=== PATIENT | female | born 1960 | race Caucasian/White ===

== ENCOUNTER → 2016-09-21 | Outpatient (CLI) | payer OTHER ==
--- NOTE | 2016-09-21 18:38 | DX ---
DEXA Bone Mineral Densitometry Clinical Indications: Screening for osteoporosis, postmenopausal, back pain, breast cancer, estrogen berry Comparison: None Technique: Bone Mineral Densitometry (BMD) by Dual Energy X-Ray Absorptiometry (DEXA) was performed utilizing the [employer] scanner. The lumbar spine was evaluated in the AP projection. The bilat eral hips and forearm were evaluated in the AP projection. Vertebral fracture assessment was also pe rformed. AP Lumbar Spine: The L1, L2, L3 and L4 vertebral bodies were evaluated. BMD: 1.258 gm/cm2 T-score: 0.5 SD Z-score: 0.5 SD AP Left Hip: Neck BMD: 0.971 gm/cm2 T-score: -0.5 SD Z-score: 0 SD AP Right Hip: Neck BMD: 0.910 gm/cm2 T-score: -0.9 SD Z-score: -0.4 SD AP Left Forearm, 09/01: BMD: 0.970 gm/cm2 T-score: 1.1 SD Z-score: 1.6 SD Vertebral Fracture Assessment: No significant fracture deformity. No prevertebral aortic calcificati on, significant marginal bone spurring, facet arthrosis, or intrinsic vertebral body sclerosis that would effect the accuracy of the lumbar spine BMD measurement. Conclusion: Considering the lowest measured site, the patient is normal and at low risk for fracture . The ten year FRAX risk for any major osteoporotic fracture is 5.5% and for a hip fracture is 0.2%. Any bone loss in this patient is probably related to aging or estrogen blockade /deficiency. To prevent osteoporosis and to promote the patient's bone density, the following recommendations shou ld be considered: 1. Pursue a regular regimen of weightbearing and muscle strengthening exercises in order to reduce t he risk of falls and fractures (as tolerated by the patient's general medical condition). 2. Ensure that daily dietary calcium uptake is maximized. 3. Consider checking the serum vitamin D level. Ensure that intake of vitamin D is 600 IU per day (fo r all ages through 70) . 4. Consider follow-up DEXA scan in two years to assess the rate of bone loss in this patient.
== END ==
LOC: BRMIMAGING 09:26
PROVIDERS: ATTEND Physician Assistant
DX: Z13.820 Encounter for screening for osteoporosis (principal); C50.919 Malignant neoplasm of unspecified site of unspecified female breast

== ENCOUNTER 2017-10-25 07:42 | Day surgery (SDC) | payer OTHER ==
[2017-10-25] MEDS ORDERED: GLUCAGON HCL 1 MG VIAL IVP PRN (07:59)
[2017-10-25] MEDS ORDERED: MIDAZOLAM 2 MG/2 ML VIAL IVP PRN (07:59)
[2017-10-25] MEDS ORDERED: MEPERIDINE 25 MG/ML SYR IVP PRN (07:59)
[2017-10-25] MEDS ORDERED: PROTAMINE SULFATE 50 MG/5 ML VIAL IVP PRN (07:59)
[2017-10-25] MEDS ORDERED: ALTEPLASE 2 MG VIAL IVP PRN (07:59)
[2017-10-25] MEDS ORDERED: fentaNYL 100 MCG/2 ML INJ IVP PRN (07:59)
[2017-10-25] MEDS ORDERED: NALOXONE HCL 0.4 MG/ML INJ IVP PRN (07:59)
[2017-10-25] MEDS ORDERED: HEPARIN 10,000 UNIT/10 ML MDV (1,000 UNIT/ML) IVP PRN (07:59)
[2017-10-25] MEDS ORDERED: FLUMAZENIL 0.5 MG/5 ML MDV IVP PRN (07:59)
[2017-10-25] MEDS ORDERED: NS 1,000 ML IV SCH (08:00)
[2017-10-25 09:11] LABS: INR 0.92 (0.83-1.16); PROTIME(PATIENT) 12.6 SEC (12.0-15.0)
--- NOTE | 2017-10-25 09:43 | PDPROPOC ---
Sedation Plan of Care Sedation Plan of Care: vital signs stable, mental status noted, patient educated of risks, benefits, alternatives, patient can tolerate sedation ASA Classification: ASA 2 Planned drugs: fentanyl, midazolam Mallampati Score: Class 1 Mallampati Reference Image: Patient passed 3-3-2 rule?: Yes
--- NOTE | 2017-10-25 09:46 | PDGENHP ---
History & Physical Chief Complaint: new onset incrased PET uptake on LT sacrum History of Present Illness: breast CA. ? radiation change versus cancer occurence. Pertinent Past, Social, Family History: never smoked Relevant Physical Exam: pain in lt hip area Cardiorespiratory Assessment: RRR, CTA
[2017-10-25] MEDS ORDERED: ACETAMINOPHEN 325 MG TAB PO PRN (10:56)
[2017-10-25] MEDS ORDERED: ONDANSETRON 4 MG/2 ML VIAL IVP PRN (10:56)
--- NOTE | 2017-10-25 10:58 | PDRADPN ---
Radiology Procedure Note Date of Procedure: 10/25/17 Radiologist: Angelika May Pre-op Diagnosis: BREAST CA Post-op Diagnosis: SAME Indication: PET AVID LT SACRUM Procedure: CT GUIDED LT SACRAL BIOPSY Finding(s): SEE REPORT; TWO CORES OBTAINED, SENT IN FORMALIN Inf/Abcess present in the surg proc area at time of surgery?: No Complications: NONE
[2017-10-25 11:20] VITALS: PULSE 82; TEMP 98.1
[2017-10-25 11:36] VITALS: RESP 13
[2017-10-25 12:07] VITALS: BP 92/80; O2SAT 94
== END 2017-10-25 12:20 | disposition home or self-care (01) ==
LOC: FIMAGING 07:42
PROVIDERS: ATTEND Internal Medicine Hematology & Oncology
PROC: 0QB13ZX Excision of Sacrum, Percutaneous Approach, Diagnostic (ICD-10-PCS; principal; 2017-10-25 11:05)
DX: M85.88 Other specified disorders of bone density and structure, other site (principal); Z85.3 Personal history of malignant neoplasm of breast
CPT/HCPCS: J1642; J2250; J2310; J3010

== ENCOUNTER → 2018-05-18 | Outpatient (CLI) | payer OTHER ==
[~2018-05-18] MED LIST: LIDOCAINE 1% 300 MG/30 ML SDV ONE
== END ==
LOC: FIMAGING 12:08
PROVIDERS: ATTEND Internal Medicine Hematology & Oncology
PROC: 07BH3ZX Excision of Right Inguinal Lymphatic, Percutaneous Approach, Diagnostic (ICD-10-PCS; principal; 2018-05-18)
DX: R59.0 Localized enlarged lymph nodes (principal); Z85.3 Personal history of malignant neoplasm of breast